=== PATIENT | female | born 1955 | race Caucasian/White ===

== ENCOUNTER 2017-02-04 17:24 | Inpatient (IN) | payer OTHER ==
[2017-02-04 18:14] VITALS: BMI 24.0
--- NOTE | 2017-02-04 20:50 | HP ---
Admission ROS [facility] - [facility] Chief Complaint: I WANT TO GO TO REHAB Allergies/Adverse Reactions: Allergies Allergy/AdvReac Type Severity Reaction Status Date / Time peanut Allergy Severe Swelling Verified 02/04/17 19:31 [place] And Derivatives AdvReac ACIDITY Verified 02/04/17 19:30 History of Present Illness: 61 YEARS OLD FEMALE WITH LONG HISTORY OF ALCOHOL NICOTINE DEPENDENCE HAS SEIZURE HYPERTENSION GERD BIPOLAR II IS ADMITTED TO REHAB Exam Limitations: No Limitations - Ebola screening Have you traveled outside of the country in the last 21 days: No Have you had contact with anyone from an Ebola affected area: No Have you been sick,other than usual withdrawal symptoms: No Do you have a fever: No - Review of Systems Constitutional: Loss of Appetite, Unintentional Wgt. Loss, Unexplained wgt Loss EENT: reports: Blurred Vision (LEFT EYE TRAUMA 2013) Respiratory: reports: SOB with Exertion Cardiac: reports: No Symptoms Reported GI: reports: Diarrhea : reports: No Symptoms Reported Musculoskeletal: reports: Back Pain (CHRONIC), Joint Pain (KNEES), Muscle Weakness Integumentary: reports: No Symptoms Reported Neuro: reports: Seizure (2010 HEAD TRAUMA), Weakness (LEGS) Endocrine: reports: No Symptoms Reported Hematology: reports: No Symptoms Reported Psychiatric: reports: Judgement Intact, Orientated x3, Anxious, Depressed Other Systems: Reviewed and Negative Patient History - Patient Medical History Hx Anemia: No Hx Asthma: Yes Hx Chronic Obstructive Pulmonary Disease (COPD): No Hx Cancer: No Hx Cardiac Disorders: No Hx Congestive Heart Failure: No Hx Hypertension: Yes Hx Hypercholesterolemia: No Hx Pacemaker: No HX Cerebrovascular Accident: No Hx Seizures: Yes Hx Dementia: No Hx Diabetes: No Hx Gastrointestinal Disorders: Yes Hx Liver Disease: No Hx Genitourinary Disorders: No Hx Sexually Transmitted Disorders: No Hx Renal Disease (ESRD): No Hx Thyroid Disease: No Hx Human Immunodeficiency Virus (HIV): No Hx Hepatitis C: Yes Hx Depression: Yes Hx Suicide Attempt: No Hx Bipolar Disorder: No Hx Schizophrenia: No - Patient Surgical History Past Surgical History: No - PPD History Previous Implant?: Yes Documented Results: Positive w/o proof Implanted On Prior [facility] Admission?: No PPD to be Administered?: Yes - Reproductive History Patient is a Female of Child Bearing Age (11 -55 yrs old): No Patient : No - Smoking Cessation Smoking history: Current every day smoker Have you smoked in the past 12 months: Yes Aproximately how many cigarettes per day: 10 Cigars Per Day: 0 Hx Chewing Tobacco Use: No Initiated information on smoking cessation: Yes 'Breaking Loose' booklet given: 02/04/17 - Substance & Tx. History Hx Alcohol Use: Yes Hx Substance Use: No Substance Use Type: Alcohol Hx Substance Use Treatment: Yes (01/2017 [facility]) - Substances Abused Alcohol Route: Oral Frequency: Daily Amount used: QUART VODKA Age of first use: 13 Date of Last Use: 01/27/17 Family Disease History - Family Disease History Family Disease History: Diabetes: Grandparent, Heart Disease: Mother () , CA: Father (), Other: Father, Mother Admission Physical Exam S - Vital Signs Vital Signs: Vital Signs - 24 hr 02/04/17 18:12 Temperature 97.9 F Pulse Rate 87 Respiratory 18 Rate Blood Pressure 150/83 - Physical General Appearance: Yes: No Apparent Distress, Appropriately Dressed, Thin HEENTM: Yes: Hearing grossly Normal, Normal ENT Inspection, Normocephalic, Normal Voice Respiratory: Yes: Lungs Clear, Normal Breath Sounds, No Respiratory Distress, No Accessory Muscle Use Neck: Yes: Supple, Trachea in good position Breast: Yes: Breasts Symetrical Cardiology: Yes: Regular Rhythm, Regular Rate, S1, S2 Abdominal: Yes: Non Tender, Soft Genitourinary: Yes: Within Normal Limits Back: Yes: Normal Inspection Musculoskeletal: Yes: full range of Motion, Gait Steady (CANE), Muscle weakness (KNEES) Extremities: Yes: Normal Inspection, Normal Range of Motion, Non-Tender Neurological: Yes: Fully Oriented, Alert, Motor Strength 5/5 (CANE), Normal Response, Depressed Affect Integumentary: Yes: Warm Lymphatic: Yes: Within Normal Limits - Diagnostic (1) Alcohol dependence with uncomplicated withdrawal Current Visit: Yes Status: Acute (2) Seizure Current Visit: Yes Status: Chronic (3) Hypertension Current Visit: Yes Status: Chronic Qualifiers: Hypertension type: essential hypertension Qualified Code(s): I10 - Essential (primary) hypertension (4) GERD with apnea Current Visit: Yes Status: Chronic (5) Weight loss Current Visit: Yes Status: Acute (6) Asthma Current Visit: Yes Status: Chronic Qualifiers: Asthma severity: mild Asthma persistence: intermittent Asthma complication type: with status asthmaticus Qualified Code(s): J45.22 - Mild intermittent asthma with status asthmaticus (7) Bipolar II disorder Current Visit: Yes Status: Suspected (8) Nicotine dependence Current Visit: Yes Status: Acute Qualifiers: Nicotine product type: cigarettes Substance use status: in withdrawal Qualified Code(s): F17.213 - Nicotine dependence, cigarettes, with withdrawal (9) Hepatitis C Current Visit: Yes Status: Resolved Qualifiers: Viral hepatitis chronicity: chronic Hepatic coma status: without hepatic coma Qualified Code(s): B18.2 - Chronic viral hepatitis C Cleared for Admission [facility] - Detox or Rehab [facility] Level of Care: Observation Bed Detox Regimen/Protocol: Not Applicable Claeared for Rehab Admission: Yes [facility] Breath Alcohol Content Breath Alcohol Content: 0 Urine Pregancy Test - Result Urine Test Results: Negative- NO Line Present Urine Drug Screen - Results Drug Screen Negative: No Urine Drug Screen Results: BAR-Barbiturates, BZO-Benzodiazepines Inpatient Rehab Admission - Initial Determination Are CD services needed?: Yes Free of communicable disease: Yes Not in need of hospitalization: Yes - Rehab Admission Criteria Previous failed treatment: Yes Poor recovery environment: Yes Comorbidities: Yes Lacks judgement: No Patient is meeting Inpatient Rehab admission criteria:: Yes
[2017-02-04] MEDS ORDERED: MAGNESIUM HYDROX 2400MG/30ML ORAL SUSPENSION 30 ML CUP PO PRN (21:03)
[2017-02-04] MEDS ORDERED: LOPERAMIDE HCL 2 MG CAPSULE PO PRN (21:03)
[2017-02-04] MEDS ORDERED: MENTHOL/PHENOL 1 EACH UD MM PRN (21:03)
[2017-02-04] MEDS ORDERED: MAGNESIUM CITRATE 300 ML BOTTLE PO PRN (21:03)
[2017-02-04] MEDS ORDERED: P-EPHED 60MG/TRIPROLIDI 2.5MG TABLET PO PRN (21:03)
[2017-02-04] MEDS ORDERED: MAG HYDROX/AL HYDROX/SIMETH 30 ML UNIT-DOSE CUP PO PRN (21:03)
[2017-02-04] MEDS ORDERED: guaiFENesin/D-METHORPHAN HB 10 ML UNIT-DOSE CUPS PO PRN (21:03)
[2017-02-04] MEDS ORDERED: ALBUTEROL SO4 0.083% IH SOL 2.5 MG/3 ML VIAL.NEB. NEB PRN (21:06)
[2017-02-04] MEDS ORDERED: cloNIDine HCL 0.1 MG TABLET PO PRN (21:07)
[2017-02-04] MEDS ORDERED: NICOTINE 14 MG/24 HOURS TOPICAL PATCH TD PRN (21:10)
[2017-02-04] MEDS: PHENYTOIN NA EXTENDED 100 MG CAPSULE (FP) PO SCH (23:30)
[2017-02-04] MEDS: RANITIDINE HCL 150 MG TABLET (FP) PO SCH (23:30)
[2017-02-04] MEDS: METOPROLOL TARTRATE 25 MG TABLET (FP) PO SCH (23:30)
[2017-02-04] MEDS: THIAMINE HCL 100 MG TABLET (FP) PO SCH (23:31)
[2017-02-05 01:57] LABS: URINE APPEARANCE CLEAR; URINE BILIRUBIN NEGATIVE (NEGATIVE); URINE BLOOD NEGATIVE (NEGATIVE); URINE COLOR STRAW; URINE GLUCOSE (UA) NEGATIVE (NEGATIVE); URINE KETONE NEGATIVE (NEGATIVE); URINE LEUK ESTERASE NEGATIVE (NEGATIVE); URINE NITRITE NEGATIVE (NEGATIVE); URINE PROTEIN NEGATIVE (NEGATIVE); URINE UROBILINOGEN NEGATIVE mg/dL (0.2-1.0)
[2017-02-05] MEDS: LEVOTHYROXINE NA 100 MCG TABLET (FP) PO SCH (07:59)
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
[2017-02-05] MEDS ORDERED: NICOTINE 14 MG/24 HOURS TOPICAL PATCH TD SCH (10:00)
[2017-02-05 10:08] LABS: ALBUMIN 3.4 g/dl (3.4-5.0); ANION GAP 9 (8-16); BLOOD UREA NITROGEN 6 mg/dL (7-18); CALCIUM 8.9 mg/dL (8.5-10.1); CHLORIDE 105 mmol/L (98-107); CO2 26 mmol/L (21-32); CREATININE 0.7 mg/dL (0.55-1.02); GLUCOSE,RANDOM 131 mg/dL (74-106); POTASSIUM 3.8 mmol/L (3.5-5.1); SGOT/AST 14 U/L (15-37); SGPT/ALT 20 U/L (12-78); SODIUM 140 mmol/L (136-145)
[2017-02-05 10:09] LABS: ALK PHOS 54 U/L (45-117); BILIRUBIN,TOTAL 0.4 mg/dL (0.2-1.0); TOT PROT 6.6 g/dl (6.4-8.2)
[2017-02-05 10:15] LABS: HEMATOCRIT 38.6 % (32.4-45.2); HEMOGLOBIN 12.6 GM/dL (10.7-15.3); MCH 32.1 pg (25.7-33.7); MCHC 32.5 g/dl (32.0-36.0); MEAN CELL VOLUME 98.6 fl (80-96); MEAN PLT VOLUME 8.9 fl (7.5-11.1); PLATELET COUNT 343 K/MM3 (134-434); RBC 3.92 M/mm3 (3.60-5.2); RDW 14.9 % (11.6-15.6); WHITE BLOOD COUNT 7.4 K/mm3 (4.0-10.0)
[2017-02-05] MEDS: RANITIDINE HCL 150 MG TABLET (FP) PO SCH ×2 (10:35→21:48)
[2017-02-05] MEDS: PRENATAL VITAMINS W/ FOLIC ACID TABLET (FP) PO SCH (10:35)
[2017-02-05] MEDS: PHENYTOIN NA EXTENDED 100 MG CAPSULE (FP) PO SCH ×2 (10:35→21:48)
[2017-02-05] MEDS: METOPROLOL TARTRATE 25 MG TABLET (FP) PO SCH ×2 (10:35→21:48)
[2017-02-05] MEDS: NICOTINE POLACRILEX 2 MG GUM BC PRN (10:36)
[2017-02-05] MEDS ORDERED: PNEUMOC 13-VAL CONJ-DIP CRM/PF 0.5 ML DISP.SYRIN IM ONE (12:00)
[2017-02-05] MEDS ORDERED: PNEUMOCOCCAL 23 VACCINE 0.5 ML VIAL IM ONE (12:00)
[2017-02-05] MEDS: OLANZapine 5 MG TABLET PO SCH (12:33)
--- NOTE | 2017-02-05 13:56 | EKG ---
Test Reason : Blood Pressure : / mmHG Vent. Rate : 085 BPM Atrial Rate : 085 BPM P-R Int : 160 ms QRS Dur : 078 ms QT Int : 390 ms P-R-T Axes : 069 069 073 degrees QTc Int : 464 ms POOR DATA QUALITY, INTERPRETATION MAY BE ADVERSELY AFFECTED NORMAL SINUS RHYTHM NORMAL ECG NO PREVIOUS ECGS AVAILABLE Confirmed by TAVON RAY MD ([id number]) on 02/05/2017 1:55:35 PM Referred By: Confirmed By:TAVON RAY MD
[2017-02-05] MEDS: traZODone HCL 100 MG TABLET (FP) PO SCH (21:48)
[2017-02-05] MEDS: THIAMINE HCL 100 MG TABLET (FP) PO SCH (21:48)
[2017-02-06] MEDS: LEVOTHYROXINE NA 100 MCG TABLET (FP) PO SCH (06:36)
[2017-02-06] MEDS: NICOTINE POLACRILEX 2 MG GUM BC PRN ×3 (06:37→21:41)
[2017-02-06] MEDS: OLANZapine 5 MG TABLET PO SCH (09:55)
[2017-02-06] MEDS: PHENYTOIN NA EXTENDED 100 MG CAPSULE (FP) PO SCH ×2 (09:55→21:42)
[2017-02-06] MEDS: RANITIDINE HCL 150 MG TABLET (FP) PO SCH ×2 (09:55→21:39)
[2017-02-06] MEDS: METOPROLOL TARTRATE 25 MG TABLET (FP) PO SCH ×2 (09:55→21:39)
[2017-02-06] MEDS: PRENATAL VITAMINS W/ FOLIC ACID TABLET (FP) PO SCH (09:55)
[2017-02-06] MEDS: traZODone HCL 100 MG TABLET (FP) PO SCH (21:39)
[2017-02-06] MEDS: THIAMINE HCL 100 MG TABLET (FP) PO SCH (21:39)
[2017-02-07] MEDS: LEVOTHYROXINE NA 100 MCG TABLET (FP) PO SCH (06:41)
[2017-02-07] MEDS: RANITIDINE HCL 150 MG TABLET (FP) PO SCH ×2 (10:10→21:41)
[2017-02-07] MEDS: PHENYTOIN NA EXTENDED 100 MG CAPSULE (FP) PO SCH ×2 (10:10→21:41)
[2017-02-07] MEDS: METOPROLOL TARTRATE 25 MG TABLET (FP) PO SCH ×2 (10:10→21:41)
[2017-02-07] MEDS: PRENATAL VITAMINS W/ FOLIC ACID TABLET (FP) PO SCH (10:10)
[2017-02-07] MEDS: OLANZapine 5 MG TABLET PO SCH (10:11)
[2017-02-07] MEDS: traZODone HCL 100 MG TABLET (FP) PO SCH (21:41)
[2017-02-07] MEDS: THIAMINE HCL 100 MG TABLET (FP) PO SCH (21:41)
[2017-02-07] MEDS: NICOTINE POLACRILEX 2 MG GUM BC PRN (21:42)
[2017-02-08] MEDS: LEVOTHYROXINE NA 100 MCG TABLET (FP) PO SCH (06:31)
[2017-02-08] MEDS: NICOTINE POLACRILEX 2 MG GUM BC PRN ×2 (06:33→21:35)
[2017-02-08] MEDS: PHENYTOIN NA EXTENDED 100 MG CAPSULE (FP) PO SCH ×2 (10:06→21:33)
[2017-02-08] MEDS: METOPROLOL TARTRATE 25 MG TABLET (FP) PO SCH ×2 (10:06→21:33)
[2017-02-08] MEDS: PRENATAL VITAMINS W/ FOLIC ACID TABLET (FP) PO SCH (10:06)
[2017-02-08] MEDS: OLANZapine 5 MG TABLET PO SCH (10:06)
[2017-02-08] MEDS: RANITIDINE HCL 150 MG TABLET (FP) PO SCH ×2 (10:07→21:34)
[2017-02-08] MEDS: hydrOXYzine PAMOATE 50 MG CAPSULE (FP) PO PRN (10:08)
[2017-02-08] MEDS: THIAMINE HCL 100 MG TABLET (FP) PO SCH (21:33)
[2017-02-08] MEDS: traZODone HCL 100 MG TABLET (FP) PO SCH (21:34)
[2017-02-09] MEDS: METHOCARBAMOL 500 MG TABLET PO PRN ×3 (01:13→21:12)
[2017-02-09] MEDS: ACETAMINOPHEN 325 MG TABLET (FP) PO PRN (01:14)
[2017-02-09] MEDS: LEVOTHYROXINE NA 100 MCG TABLET (FP) PO SCH (06:09)
[2017-02-09] MEDS: METOPROLOL TARTRATE 25 MG TABLET (FP) PO SCH ×2 (10:04→21:12)
[2017-02-09] MEDS: PHENYTOIN NA EXTENDED 100 MG CAPSULE (FP) PO SCH ×2 (10:04→21:12)
[2017-02-09] MEDS: RANITIDINE HCL 150 MG TABLET (FP) PO SCH ×2 (10:04→21:12)
[2017-02-09] MEDS: PRENATAL VITAMINS W/ FOLIC ACID TABLET (FP) PO SCH (10:04)
[2017-02-09] MEDS: OLANZapine 5 MG TABLET PO SCH (10:05)
[2017-02-09] MEDS: hydrOXYzine PAMOATE 50 MG CAPSULE (FP) PO PRN ×2 (10:07→21:12)
[2017-02-09] MEDS: traZODone HCL 100 MG TABLET (FP) PO SCH (21:12)
[2017-02-09] MEDS: THIAMINE HCL 100 MG TABLET (FP) PO SCH (21:12)
[2017-02-09] MEDS: NICOTINE POLACRILEX 2 MG GUM BC PRN (21:13)
[2017-02-10] MEDS: NICOTINE POLACRILEX 2 MG GUM BC PRN ×3 (06:23→21:52)
[2017-02-10] MEDS: LEVOTHYROXINE NA 100 MCG TABLET (FP) PO SCH (06:23)
[2017-02-10] MEDS: OLANZapine 5 MG TABLET PO SCH (10:23)
[2017-02-10] MEDS: PRENATAL VITAMINS W/ FOLIC ACID TABLET (FP) PO SCH (10:23)
[2017-02-10] MEDS: PHENYTOIN NA EXTENDED 100 MG CAPSULE (FP) PO SCH ×2 (10:23→21:48)
[2017-02-10] MEDS: RANITIDINE HCL 150 MG TABLET (FP) PO SCH ×2 (10:23→21:48)
[2017-02-10] MEDS: METOPROLOL TARTRATE 25 MG TABLET (FP) PO SCH ×2 (10:23→21:50)
[2017-02-10] MEDS: hydrOXYzine PAMOATE 50 MG CAPSULE (FP) PO PRN ×2 (10:25→21:50)
[2017-02-10] MEDS: ACETAMINOPHEN 325 MG TABLET (FP) PO PRN (10:25)
[2017-02-10] MEDS: traZODone HCL 100 MG TABLET (FP) PO SCH (21:48)
[2017-02-10] MEDS: THIAMINE HCL 100 MG TABLET (FP) PO SCH (21:48)
[2017-02-10] MEDS: METHOCARBAMOL 500 MG TABLET PO PRN (21:51)
[2017-02-11] MEDS: LEVOTHYROXINE NA 100 MCG TABLET (FP) PO SCH (06:20)
[2017-02-11] MEDS: NICOTINE POLACRILEX 2 MG GUM BC PRN ×3 (06:22→21:55)
[2017-02-11] MEDS ORDERED: COLLOIDAL OATMEAL 1 BAR EACH TP PRN (10:18)
[2017-02-11] MEDS ORDERED: AMMONIUM LACTATE 12% LOTION 225 GM BOTTLE TP PRN (10:18)
[2017-02-11] MEDS: RANITIDINE HCL 150 MG TABLET (FP) PO SCH ×2 (10:43→21:51)
[2017-02-11] MEDS: PHENYTOIN NA EXTENDED 100 MG CAPSULE (FP) PO SCH ×2 (10:43→21:51)
[2017-02-11] MEDS: METOPROLOL TARTRATE 25 MG TABLET (FP) PO SCH ×2 (10:43→21:51)
[2017-02-11] MEDS: OLANZapine 5 MG TABLET PO SCH (10:43)
[2017-02-11] MEDS: PRENATAL VITAMINS W/ FOLIC ACID TABLET (FP) PO SCH (10:43)
[2017-02-11] MEDS: METHOCARBAMOL 500 MG TABLET PO PRN ×2 (10:45→21:54)
[2017-02-11] MEDS: hydrOXYzine PAMOATE 50 MG CAPSULE (FP) PO PRN ×2 (10:45→21:54)
[2017-02-11] MEDS ORDERED: PT OWN MED DRAWER 7, Y5N ONE (13:41)
[2017-02-11] MEDS: traZODone HCL 100 MG TABLET (FP) PO SCH (21:51)
[2017-02-11] MEDS: THIAMINE HCL 100 MG TABLET (FP) PO SCH (21:51)
[2017-02-11] MEDS: ACETAMINOPHEN 325 MG TABLET (FP) PO PRN (21:52)
[2017-02-12] MEDS: LEVOTHYROXINE NA 100 MCG TABLET (FP) PO SCH (06:24)
[2017-02-12] MEDS: NICOTINE POLACRILEX 2 MG GUM BC PRN ×3 (06:26→21:49)
[2017-02-12] MEDS: PRENATAL VITAMINS W/ FOLIC ACID TABLET (FP) PO SCH (10:37)
[2017-02-12] MEDS: PHENYTOIN NA EXTENDED 100 MG CAPSULE (FP) PO SCH ×2 (10:37→21:43)
[2017-02-12] MEDS: METOPROLOL TARTRATE 25 MG TABLET (FP) PO SCH ×2 (10:37→21:42)
[2017-02-12] MEDS: RANITIDINE HCL 150 MG TABLET (FP) PO SCH ×2 (10:37→21:42)
[2017-02-12] MEDS: OLANZapine 5 MG TABLET PO SCH (10:37)
[2017-02-12] MEDS: hydrOXYzine PAMOATE 50 MG CAPSULE (FP) PO PRN ×2 (10:38→21:46)
[2017-02-12] MEDS: METHOCARBAMOL 500 MG TABLET PO PRN ×2 (10:39→21:46)
--- NOTE | 2017-02-12 13:07 | PN ---
S Progress Note (SOAP) Subjective: c/o pruritis on soles of b/l feet, rash o right hand and right arm muscle soreness. Objective: 02/12/17 13:06 focused PE: punctate blisters on hand on surface that touches the cane, nontender, skin intact, no erythema rash on soles of b/l feet extending medially into arches, skin intact, no erythema right arm with "muscle knot" above right antecubital fossa Assessment: 02/12/17 13:07 61 yr old woman here for rehab c/o pruritic rash on b/l feet, muscle ache on right arm and rash on right hand. feet likely due to fungal infection, hand rash likely contact dermatitis, and muscle ache due to cane dependence(she is normally use to a 4-wheel walker) Plan: tinactine for feet hytone for her hand
[2017-02-12] MEDS ORDERED: HYDROCORTISONE 1% TOPICAL CREAM 30 GM TUBE TP SCH (16:00)
[2017-02-12] MEDS: THIAMINE HCL 100 MG TABLET (FP) PO SCH (21:43)
[2017-02-12] MEDS: traZODone HCL 100 MG TABLET (FP) PO SCH (21:43)
[2017-02-12] MEDS: HYDROCORTISONE 1% TOPICAL OINT 30 GM TUBE TP SCH (21:47)
[2017-02-12] MEDS: TOLNAFTATE 1% CREAM 15 GM TUBE TP SCH (21:47)
[2017-02-12] MEDS: ACETAMINOPHEN 325 MG TABLET (FP) PO PRN (21:48)
[2017-02-13] MEDS: LEVOTHYROXINE NA 100 MCG TABLET (FP) PO SCH (06:32)
[2017-02-13] MEDS: NICOTINE POLACRILEX 2 MG GUM BC PRN ×3 (06:34→21:31)
[2017-02-13] MEDS ORDERED: PT OWN MED DRAWER 7, Y5N ONE (08:29)
[2017-02-13] MEDS: HYDROCORTISONE 1% TOPICAL OINT 30 GM TUBE TP SCH ×2 (10:12→21:34)
[2017-02-13] MEDS: METOPROLOL TARTRATE 25 MG TABLET (FP) PO SCH ×2 (10:12→21:29)
[2017-02-13] MEDS: PHENYTOIN NA EXTENDED 100 MG CAPSULE (FP) PO SCH ×2 (10:12→21:29)
[2017-02-13] MEDS: PRENATAL VITAMINS W/ FOLIC ACID TABLET (FP) PO SCH (10:12)
[2017-02-13] MEDS: TOLNAFTATE 1% CREAM 15 GM TUBE TP SCH ×2 (10:13→21:35)
[2017-02-13] MEDS: OLANZapine 5 MG TABLET PO SCH (10:13)
[2017-02-13] MEDS: RANITIDINE HCL 150 MG TABLET (FP) PO SCH ×2 (10:13→21:29)
[2017-02-13] MEDS: hydrOXYzine PAMOATE 50 MG CAPSULE (FP) PO PRN ×2 (10:14→21:31)
[2017-02-13] MEDS: ACETAMINOPHEN 325 MG TABLET (FP) PO PRN (10:14)
[2017-02-13] MEDS: THIAMINE HCL 100 MG TABLET (FP) PO SCH (21:29)
[2017-02-13] MEDS: traZODone HCL 100 MG TABLET (FP) PO SCH (21:29)
[2017-02-13] MEDS: METHOCARBAMOL 500 MG TABLET PO PRN (21:31)
[2017-02-14] MEDS: LEVOTHYROXINE NA 100 MCG TABLET (FP) PO SCH (06:26)
[2017-02-14] MEDS: NICOTINE POLACRILEX 2 MG GUM BC PRN ×3 (06:27→21:24)
[2017-02-14] MEDS ORDERED: PT OWN MED DRAWER 7, Y5N ONE (08:05)
[2017-02-14] MEDS: TOLNAFTATE 1% CREAM 15 GM TUBE TP SCH ×2 (10:02→21:22)
[2017-02-14] MEDS: HYDROCORTISONE 1% TOPICAL OINT 30 GM TUBE TP SCH ×2 (10:02→21:22)
[2017-02-14] MEDS: METOPROLOL TARTRATE 25 MG TABLET (FP) PO SCH ×2 (10:19→21:23)
[2017-02-14] MEDS: PRENATAL VITAMINS W/ FOLIC ACID TABLET (FP) PO SCH (10:19)
[2017-02-14] MEDS: RANITIDINE HCL 150 MG TABLET (FP) PO SCH ×2 (10:19→21:23)
[2017-02-14] MEDS: OLANZapine 5 MG TABLET PO SCH (10:19)
[2017-02-14] MEDS: PHENYTOIN NA EXTENDED 100 MG CAPSULE (FP) PO SCH ×2 (10:20→21:23)
[2017-02-14] MEDS: METHOCARBAMOL 500 MG TABLET PO PRN ×2 (10:21→21:23)
[2017-02-14] MEDS: hydrOXYzine PAMOATE 50 MG CAPSULE (FP) PO PRN ×2 (10:21→21:23)
[2017-02-14] MEDS: THIAMINE HCL 100 MG TABLET (FP) PO SCH (21:23)
[2017-02-14] MEDS: traZODone HCL 100 MG TABLET (FP) PO SCH (21:23)
[2017-02-15] MEDS: NICOTINE POLACRILEX 2 MG GUM BC PRN ×3 (06:31→21:38)
[2017-02-15] MEDS: LEVOTHYROXINE NA 100 MCG TABLET (FP) PO SCH (06:31)
[2017-02-15] MEDS: hydrOXYzine PAMOATE 50 MG CAPSULE (FP) PO PRN ×2 (06:32→21:37)
[2017-02-15] MEDS: METHOCARBAMOL 500 MG TABLET PO PRN ×2 (06:32→21:37)
[2017-02-15] MEDS ORDERED: PT OWN MED DRAWER 7, Y5N ONE (08:25)
[2017-02-15] MEDS: RANITIDINE HCL 150 MG TABLET (FP) PO SCH ×2 (10:23→21:35)
[2017-02-15] MEDS: PHENYTOIN NA EXTENDED 100 MG CAPSULE (FP) PO SCH ×2 (10:23→21:35)
[2017-02-15] MEDS: METOPROLOL TARTRATE 25 MG TABLET (FP) PO SCH ×2 (10:23→21:35)
[2017-02-15] MEDS: PRENATAL VITAMINS W/ FOLIC ACID TABLET (FP) PO SCH (10:23)
[2017-02-15] MEDS: OLANZapine 5 MG TABLET PO SCH (10:23)
[2017-02-15] MEDS: TOLNAFTATE 1% CREAM 15 GM TUBE TP SCH ×2 (10:24→21:36)
[2017-02-15] MEDS: HYDROCORTISONE 1% TOPICAL OINT 30 GM TUBE TP SCH ×2 (10:24→21:37)
[2017-02-15] MEDS: THIAMINE HCL 100 MG TABLET (FP) PO SCH (21:35)
[2017-02-15] MEDS: traZODone HCL 100 MG TABLET (FP) PO SCH (21:35)
[2017-02-16] MEDS: LEVOTHYROXINE NA 100 MCG TABLET (FP) PO SCH (06:27)
[2017-02-16] MEDS: METHOCARBAMOL 500 MG TABLET PO PRN ×2 (06:27→21:41)
[2017-02-16] MEDS: hydrOXYzine PAMOATE 50 MG CAPSULE (FP) PO PRN ×2 (06:27→21:41)
[2017-02-16] MEDS: NICOTINE POLACRILEX 2 MG GUM BC PRN ×2 (06:28→21:34)
[2017-02-16] MEDS ORDERED: PT OWN MED DRAWER 7, Y5N ONE (08:39)
[2017-02-16] MEDS: RANITIDINE HCL 150 MG TABLET (FP) PO SCH ×2 (10:14→21:33)
[2017-02-16] MEDS: TOLNAFTATE 1% CREAM 15 GM TUBE TP SCH ×2 (10:14→21:36)
[2017-02-16] MEDS: METOPROLOL TARTRATE 25 MG TABLET (FP) PO SCH ×2 (10:14→21:33)
[2017-02-16] MEDS: PHENYTOIN NA EXTENDED 100 MG CAPSULE (FP) PO SCH ×2 (10:14→21:33)
[2017-02-16] MEDS: PRENATAL VITAMINS W/ FOLIC ACID TABLET (FP) PO SCH (10:14)
[2017-02-16] MEDS: OLANZapine 5 MG TABLET PO SCH (10:14)
[2017-02-16] MEDS: HYDROCORTISONE 1% TOPICAL OINT 30 GM TUBE TP SCH ×2 (10:14→21:34)
[2017-02-16] MEDS: THIAMINE HCL 100 MG TABLET (FP) PO SCH (21:33)
[2017-02-16] MEDS: traZODone HCL 100 MG TABLET (FP) PO SCH (21:33)
[2017-02-17] MEDS: LEVOTHYROXINE NA 100 MCG TABLET (FP) PO SCH (06:27)
[2017-02-17] MEDS: PHENYTOIN NA EXTENDED 100 MG CAPSULE (FP) PO SCH ×2 (10:23→21:29)
[2017-02-17] MEDS: RANITIDINE HCL 150 MG TABLET (FP) PO SCH ×2 (10:24→21:29)
[2017-02-17] MEDS: PRENATAL VITAMINS W/ FOLIC ACID TABLET (FP) PO SCH (10:24)
[2017-02-17] MEDS: METOPROLOL TARTRATE 25 MG TABLET (FP) PO SCH ×2 (10:24→21:29)
[2017-02-17] MEDS: OLANZapine 5 MG TABLET PO SCH (10:24)
[2017-02-17] MEDS: TOLNAFTATE 1% CREAM 15 GM TUBE TP SCH (10:25)
[2017-02-17] MEDS: hydrOXYzine PAMOATE 50 MG CAPSULE (FP) PO PRN ×2 (10:25→21:29)
[2017-02-17] MEDS: HYDROCORTISONE 1% TOPICAL OINT 30 GM TUBE TP SCH ×2 (10:25→21:30)
[2017-02-17] MEDS: NICOTINE POLACRILEX 2 MG GUM BC PRN ×2 (10:26→21:30)
[2017-02-17] MEDS: METHOCARBAMOL 500 MG TABLET PO PRN ×2 (10:26→21:29)
--- NOTE | 2017-02-17 14:03 | PN ---
Psychiatric Progress Note Vital Signs: Vital Signs Period Temp Pulse Resp BP Sys/Luna Pulse Ox Last 24 Hr 97.6 F 70-99 18-18 106-112/72-78 Date of Session: 02/17/17 Chief Complaint:: Discharge visit HPI: Marien addressed Alcohol dependence comorbid with Substance induced mood disorder. ROS: Significant for . Current Medications: Active Medications Generic Name Dose Route Start Last Admin Trade Name Freq PRN Reason Stop Dose Admin Acetaminophen 650 mg 02/04/17 21:03 02/13/17 10:14 Tylenol - PO 650 mg Q4H PRN Administration PAIN Al Hydroxide/Mg Hydroxide 30 ml 02/04/17 21:03 Mylanta Oral Suspension - PO Q6H PRN DYSPEPSIA Clonidine 0.1 mg 02/04/17 21:07 Catapres - PO Q8H PRN WITHDRAWAL(CONT SUBST) Colloidal Oatmeal 1 applic 02/11/17 10:18 02/13/17 21:31 Aveeno Soap - TP 1 applic DAILY PRN Administration HYGEINE Eucalyptus/Menthol/Phenol/Sorbitol 1 each 02/04/17 21:03 Cepastat Lozenge - MM Q4H PRN SORE THROAT Guaifenesin 10 ml 02/04/17 21:03 Robitussin Dm - PO Q6H PRN COUGH Hydrocortisone 1 applic 02/12/17 22:00 02/17/17 10:25 Hytone 1% Ointment - TP Not Given BID MELVIN Hydroxyzine Pamoate 50 mg 02/05/17 11:01 02/17/17 10:25 Vistaril - PO 50 mg Q4H PRN Administration ANXIETY Lactic Acid 1 applic 02/11/17 10:18 Lac-Hydrin 12 TP DAILY PRN DRY SKIN Levothyroxine Sodium 100 mcg 02/05/17 08:00 02/17/17 06:27 Synthroid - PO 100 mcg DAILY@0700 MELVIN Administration Loperamide HCl 4 mg 02/04/17 21:03 Imodium - PO Q6H PRN DIARRHEA Magnesium Citrate 300 ml 02/04/17 21:03 Citroma - PO Q48H PRN CONSTIPATION Magnesium Hydroxide 30 ml 02/04/17 21:03 Milk Of Magnesia - PO DAILY PRN CONSTIPATION Methocarbamol 500 mg 02/04/17 21:08 02/17/17 10:26 Robaxin - PO 500 mg Q8H PRN Administration BACK PAIN Metoprolol Tartrate 25 mg 02/04/17 22:00 02/17/17 10:24 Lopressor - PO Not Given BID MELVIN Nicotine 14 mg 02/04/17 21:10 Nicoderm Patch - TD DAILY PRN WITHDRAWAL(CONT SUBST) Nicotine Polacrilex 2 mg 02/04/17 21:03 02/17/17 10:26 Nicorette Gum - BC 2 mg Q2H PRN Administration NICOTINE REPLACEMENT RX Olanzapine 5 mg 02/05/17 12:30 02/17/17 10:24 Zyprexa - PO 5 mg DAILY MELVIN Administration Phenytoin Sodium 100 mg 02/04/17 22:00 02/17/17 10:23 Dilantin - PO 100 mg BID MELVIN Administration Multivit/Folic Acid/Iron 1 tab 02/05/17 10:00 02/17/17 10:24 Vitamins ([facility]) - PO 1 tab DAILY MELVIN Administration Pseudoephedrine/Triprolidine 1 combo 02/04/17 21:03 Actifed - PO TID PRN NASAL CONGESTION Ranitidine HCl 150 mg 02/04/17 22:00 02/17/17 10:24 Zantac - PO 150 mg BID MELVIN Administration Thiamine HCl 100 mg 02/04/17 22:00 02/16/17 21:33 Vitamin B1 - PO 100 mg HS MELVIN Administration Tolnaftate 1 applic 02/12/17 22:00 02/17/17 10:25 Tinactin 1% Cream - TP 02/17/17 21:59 1 applic BID MELVIN Administration Trazodone HCl 100 mg 02/05/17 22:00 02/16/17 21:33 Desyrel - PO 100 mg HS MELVIN Administration Current Side Effect: No Lab tests ordered: No Lab tests reviewed: Yes Provider note:: Patient will complete this program tomorrow 02/18/17.She has met her treatment goals and will continue to address her issues on outpatient basis at Total face to face time:: 25 Psychiatric Treatment Plan - Problem List (1) Nicotine dependence Current Visit: Yes Qualifiers: Nicotine product type: cigarettes Substance use status: in withdrawal Qualified Code(s): F17.213 - Nicotine dependence, cigarettes, with withdrawal (2) Asthma Current Visit: Yes Qualifiers: Asthma severity: mild Asthma persistence: intermittent Asthma complication type: with status asthmaticus Qualified Code(s): J45.22 - Mild intermittent asthma with status asthmaticus (3) GERD with apnea Current Visit: Yes (4) Hypertension Current Visit: Yes Qualifiers: Hypertension type: essential hypertension Qualified Code(s): I10 - Essential (primary) hypertension (5) Seizure Current Visit: Yes (6) Alcohol dependence Current Visit: Yes (7) Hepatitis C Current Visit: Yes Qualifiers: Viral hepatitis chronicity: chronic Hepatic coma status: without hepatic coma Qualified Code(s): B18.2 - Chronic viral hepatitis C (8) Alcohol-induced mood disorder Current Visit: Yes
[2017-02-17] MEDS: traZODone HCL 100 MG TABLET (FP) PO SCH (21:29)
[2017-02-17] MEDS: THIAMINE HCL 100 MG TABLET (FP) PO SCH (21:29)
[2017-02-18] MEDS: hydrOXYzine PAMOATE 50 MG CAPSULE (FP) PO PRN ×3 (06:06→21:22)
[2017-02-18] MEDS: METHOCARBAMOL 500 MG TABLET PO PRN ×2 (06:06→21:22)
[2017-02-18] MEDS: LEVOTHYROXINE NA 100 MCG TABLET (FP) PO SCH (06:06)
[2017-02-18] MEDS: NICOTINE POLACRILEX 2 MG GUM BC PRN ×2 (06:08→09:44)
[2017-02-18] MEDS ORDERED: PT OWN MED DRAWER 7, Y5N ONE (09:04)
[2017-02-18] MEDS: PHENYTOIN NA EXTENDED 100 MG CAPSULE (FP) PO SCH ×2 (09:41→21:20)
[2017-02-18] MEDS: OLANZapine 5 MG TABLET PO SCH (09:41)
[2017-02-18] MEDS: RANITIDINE HCL 150 MG TABLET (FP) PO SCH ×2 (09:41→21:20)
[2017-02-18] MEDS: PRENATAL VITAMINS W/ FOLIC ACID TABLET (FP) PO SCH (09:41)
[2017-02-18] MEDS: METOPROLOL TARTRATE 25 MG TABLET (FP) PO SCH ×2 (10:08→21:20)
[2017-02-18] MEDS: HYDROCORTISONE 1% TOPICAL OINT 30 GM TUBE TP SCH ×2 (10:08→21:21)
[2017-02-18] MEDS: traZODone HCL 100 MG TABLET (FP) PO SCH (21:20)
[2017-02-18] MEDS: THIAMINE HCL 100 MG TABLET (FP) PO SCH (21:20)
[2017-02-19] MEDS: LEVOTHYROXINE NA 100 MCG TABLET (FP) PO SCH (06:36)
[2017-02-19] MEDS: hydrOXYzine PAMOATE 50 MG CAPSULE (FP) PO PRN (06:36)
[2017-02-19] MEDS: METHOCARBAMOL 500 MG TABLET PO PRN (06:36)
[2017-02-19] MEDS: NICOTINE POLACRILEX 2 MG GUM BC PRN ×2 (06:37→10:03)
[2017-02-19 07:39] VITALS: TEMP 97.4
[2017-02-19 09:54] VITALS: BP 122/80; PULSE 83
[2017-02-19] MEDS: RANITIDINE HCL 150 MG TABLET (FP) PO SCH (10:02)
[2017-02-19] MEDS: PRENATAL VITAMINS W/ FOLIC ACID TABLET (FP) PO SCH (10:02)
[2017-02-19] MEDS: HYDROCORTISONE 1% TOPICAL OINT 30 GM TUBE TP SCH (10:02)
[2017-02-19] MEDS: PHENYTOIN NA EXTENDED 100 MG CAPSULE (FP) PO SCH (10:02)
[2017-02-19] MEDS: METOPROLOL TARTRATE 25 MG TABLET (FP) PO SCH (10:02)
[2017-02-19] MEDS: OLANZapine 5 MG TABLET PO SCH (10:02)
== END 2017-02-19 10:15 | disposition home or self-care (01) | DRG 772 ==
LOC: YASAS 17:24 → Y3E 19:48 → UNDODISIN 02-18 10:30
PROVIDERS: ADMIT Psychiatry & Neurology Psychiatry; ATTEND Psychiatry & Neurology Psychiatry
PROC: HZ42ZZZ Group Counseling for Substance Abuse Treatment, Cognitive-Behavioral (ICD-10-PCS; principal; 2017-02-04)
DX: F10.20 Alcohol dependence, uncomplicated (principal); F17.210 Nicotine dependence, cigarettes, uncomplicated; F10.24 Alcohol dependence with alcohol-induced mood disorder; I10 Essential (primary) hypertension; J45.22 Mild intermittent asthma with status asthmaticus; K21.9 Gastro-esophageal reflux disease without esophagitis; R56.9 Unspecified convulsions; F31.81 Bipolar II disorder; Z59.0 Homelessness
CPT/HCPCS: 36415; 80053; 80185; 81003; 85027; 86593; 87389; 90732; 93005; 93010; G0009